=== PATIENT | female | born 1960 | race African-American/Black ===

== ENCOUNTER 2016-07-20 17:27 | Emergency (ER) | payer OTHER ==
[2016-07-20 17:30] VITALS: BP 133/65; PULSE 103; TEMP 100; BMI 37.8
[2016-07-20 18:10] LABS: URINE APPEARANCE CLEAR; URINE BILIRUBIN NEGATIVE (NEGATIVE); URINE COLOR YELLOW; URINE GLUCOSE (UA) NEGATIVE (NEGATIVE); URINE KETONE NEGATIVE (NEGATIVE); URINE NITRITE NEGATIVE (NEGATIVE); URINE PROTEIN NEGATIVE (NEGATIVE); URINE UROBILINOGEN NEGATIVE E.U./dl (0.2-1.0)
[2016-07-20 18:26] LABS: URINE BLOOD 1+ (NEGATIVE); URINE LEUK ESTERASE 3+ (NEGATIVE)
[2016-07-20] MEDS ORDERED: ACETAMINOPHEN 325 MG TABLET (FP) PO ONE (18:26)
[2016-07-20 18:28] LABS: URINE MUCUS FEW; URINE RBC 17 /hpf (0-3); URINE WBC 10 /hpf (3-5)
[2016-07-20] MEDS ORDERED: ACETAMINOPHEN 325 MG TABLET (FP) ONE (18:30)
--- NOTE | 2016-07-20 18:34 | PDOC ---
History of Present Illness - General Chief Complaint: Cold Symptoms Stated Complaint: COLD SYMPTOMS Time Seen by Provider: 07/20/16 17:50 History Source: Patient Exam Limitations: No Limitations - History of Present Illness Initial Comments: 07/20/16 18:32 56 yr female with 5 days body aches, back pain and fever. Pt states she was dx with UTI 2 weeks ago but never picked up the antibiotic prescription. Pt c/o mild back pain left side that radiates to her left buttock and thigh. no vomiting or diarrhea. Pt also with dry cough. 07/20/16 18:34 Past History - Past Medical History Allergies/Adverse Reactions: Allergies Allergy/AdvReac Type Severity Reaction Status Date / Time codeine [Codeine] Allergy Severe Verified 07/20/16 17:29 Home Medications: Ambulatory Orders Cephalexin Monohydrate [Keflex -] 500 mg PO Q8H #30 capsule 07/20/16 Anemia: Yes Asthma: Yes Suicide Attempt (Hx): No - Surgical History Abdominal Surgery: Yes (partial umbilical hernia.) - Immunization History Immunization Up to Date: Yes - Psycho/Social/Smoking Cessation Hx Anxiety: No Suicidal Ideation: No Smoking Status: No Smoking History: Current every day smoker Have you smoked in the past 12 months: Yes Number of Cigarettes Smoked Daily: 10 Information on smoking cessation initiated: No Hx Alcohol Use: No Drug/Substance Use Hx: No Substance Use Type: None Review of Systems - Review of Systems Able to Perform ROS?: Yes Is the patient limited Brazilian proficient: No Constitutional: Yes: Symptoms Reported Respiratory: Yes: Symptoms reported : Yes: Symptoms Reported Musculoskeletal: Yes: Back Pain *Physical Exam - Vital Signs Last Vital Signs Temp Pulse Resp BP Pulse Ox 100.0 F H 103 H 18 133/65 98 07/20/16 17:27 07/20/16 17:27 07/20/16 17:27 07/20/16 17:27 07/20/16 17:27 - Physical Exam General Appearance: Yes: Nourished, Appropriately Dressed HEENT: positive: EOMI, CATRACHITO, Normal ENT Inspection, TMs Normal, Pharynx Normal Neck: positive: Supple. negative: Tender Respiratory/Chest: positive: Lungs Clear, Normal Breath Sounds Cardiovascular: positive: Regular Rhythm, Regular Rate Gastrointestinal/Abdominal: positive: Normal Bowel Sounds, Soft. negative: Tender Musculoskeletal: positive: Normal Inspection. negative: CVA Tenderness, CVA Tenderness (R), CVA Tenderness (L) Extremity: positive: Normal Capillary Refill, Normal Inspection, Normal Range of Motion Integumentary: positive: Normal Color, Dry, Warm Neurologic: positive: Fully Oriented, Alert, Normal Mood/Affect, Normal Response , Motor Strength 07/26 ED Treatment Course - ADDITIONAL ORDERS Additional order review: Laboratory Results 07/20/16 17:50 Urine Color Yellow Urine Appearance Clear Urine pH 5.0 Ur Specific [place] 1.027 Urine Protein Negative Urine Glucose (UA) Negative Urine Ketones Negative Urine Blood 1+ H Urine Nitrite Negative Urine Bilirubin Negative Urine Urobilinogen Negative Ur Leukocyte Esterase 3+ H Urine RBC 17 Urine WBC 10 Ur Epithelial Cells Moderate Urine Mucus Few - Medications Given in the ED: ED Medications Discontinued Medications Generic Name Dose Route Start Last Admin Trade Name Freq PRN Reason Stop Dose Admin Acetaminophen 650 mg 07/20/16 18:26 07/20/16 18:31 Tylenol - PO 07/20/16 18:27 650 mg ONCE ONE Administration Medical Decision Making - Medical Decision Making 07/20/16 18:34 cc: fever, chills body aches will check for flu and UTI no vomiting or diarrhea non toxic appearing *DC/Admit/Observation/Transfer Diagnosis at time of Disposition: Urinary tract infection Qualifiers: Urinary tract infection type: acute cystitis Hematuria presence: with hematuria Qualified Code(s): N30.01 - Acute cystitis with hematuria - Discharge Dispostion Disposition: HOME Condition at time of disposition: Good - Prescriptions Prescriptions: Cephalexin Monohydrate [Keflex -] 500 mg PO Q8H #30 capsule - Referrals Referrals: Gurmeet Alavrado MD [Primary Care Provider] - - Patient Instructions Additional Instructions: take the antibiotic Keflex as directed for 10 days for urinary tract infection drink pleanty of water take motrin 600mg every 6-8hrs for pain or fever follow with your doctor on FRIDAY for a follow up exam Return to ER for any vomiting, unable to eat or drink or any other concerns
== END 2016-07-20 19:11 | disposition home or self-care (01) ==
LOC: SUPCPDRO 17:27 → JERFT 17:27
DX: N30.01 Acute cystitis with hematuria (principal); J45.909 Unspecified asthma, uncomplicated; D64.9 Anemia, unspecified; F17.210 Nicotine dependence, cigarettes, uncomplicated
CPT/HCPCS: 36415; 81003; 81015; 87086; 87804; 99281-25

== ENCOUNTER 2017-08-05 14:39 | Emergency (ER) | payer OTHER ==
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
[2017-08-05 14:47] VITALS: BP 126/89; PULSE 97; TEMP 99; BMI 37.8
[2017-08-05] MEDS ORDERED: KETOROLAC TROMETHAMINE 30 MG/1 ML VIAL IM ONE (14:48)
[2017-08-05] MEDS ORDERED: CYCLOBENZAPRINE HCL 10 MG TABLET (FP) PO ONE (14:48)
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
[2017-08-05] MEDS ORDERED: CYCLOBENZAPRINE HCL 10 MG TABLET (FP) ONE (15:37)
[2017-08-05] MEDS ORDERED: KETOROLAC TROMETHAMINE 30 MG/1 ML VIAL ONE (15:39)
[2017-08-05 15:43] LABS: URINE APPEARANCE CLEAR; URINE BILIRUBIN NEGATIVE (<2.0 mg/dL); URINE COLOR LTYELLOW; URINE GLUCOSE (UA) NEGATIVE (NEGATIVE); URINE KETONE NEGATIVE (NEGATIVE); URINE LEUK ESTERASE NEGATIVE (NEGATIVE); URINE NITRITE NEGATIVE (NEGATIVE); URINE PROTEIN NEGATIVE (NEGATIVE)
== END 2017-08-05 16:53 | disposition home or self-care (01) ==
LOC: JERFT 14:39
PROC: 3E0233Z Introduction of Anti-inflammatory into Muscle, Percutaneous Approach (ICD-10-PCS; principal; 2017-08-05)
DX: S39.012A Strain of muscle, fascia and tendon of lower back, initial encounter (principal); V49.59XA Passenger injured in collision with other motor vehicles in traffic accident, initial encounter; Y92.414 Local residential or business street as the place of occurrence of the external cause; Y93.89 Activity, other specified; Y99.8 Other external cause status
CPT/HCPCS: 72070-TC-FY; 72100-TC-FY; 81003; 96372; 99281-25